=== PATIENT | female | born 1955 | race Caucasian/White ===

== ENCOUNTER 2017-10-08 07:29 | Day surgery (SDC) | payer OTHER ==
[2017-10-08] MEDS ORDERED: FENTAnyl 50 MCG/ML VIAL (09:22)
[2017-10-08] MEDS ORDERED: MIDAZOLAM 1 MG/ML 2 ML INJ (09:22)
== END 2017-10-08 11:20 | disposition home or self-care (01) ==
LOC: GIL 07:29
DX: Z12.11 Encounter for screening for malignant neoplasm of colon (principal); K64.8 Other hemorrhoids
CPT/HCPCS: 45378